=== PATIENT | female | born 1970 | race Two or more races ===

== ENCOUNTER 2024-05-05 21:46 | Emergency (ER) | payer OTHER ==
[~2024-05-05] VITALS: Ht 170.2 cm; Wt 80.0 kg
[2024-05-05 22:44] LABS: Urine Bacteria MOD /hpf (None Seen); Urine Blood Negative /uL (Negative); Urine Clarity Turbid (Clear); Urine Color Colorless (Yellow); Urine Mucus FEW (None Seen); Urine Protein, UAD TRACE (Negative); Urine Specific Gravity 1.018 (1.001-1.035); Urine Urobilinogen Normal (Negative); Urine WBC 113 /hpf (0 - 5); Urine pH 6.5 (5.0-9.0)
[2024-05-05 23:04] VITALS: BP 131/90; TEMP 97.9
[2024-05-05 23:12] VITALS: PULSE 84; RESP 20; O2SAT 96
[2024-05-05] MEDS: HYDROcodone-ACET 10/325MG TAB PO ONE (23:17)
[2024-05-06] MEDS: KETOROLAC TROMETH 30 MG/ML 1ML VIAL IM ONE (00:45)
[2024-05-06] MEDS ORDERED: METO-281 PO (01:09)
[2024-05-06] MEDS ORDERED: LEVO500T91 PO (01:09)
[2024-05-06] MEDS ORDERED: IBUP-1455 PO (01:09)
[2024-05-06] MEDS: levoFLOXacin 250 MG TAB PO ONE (01:34)
== END 2024-05-06 02:18 | disposition home or self-care (01) ==
LOC: ER 21:46
DX: N39.0 Urinary tract infection, site not specified (principal); R51.9 Headache, unspecified
CPT/HCPCS: 70450; 81001; 81025; 82962; 93005; 96372; 99285; J1885